=== PATIENT | male | born 1945 | race Caucasian/White ===

== ENCOUNTER → 2025-07-02 11:46 | Outpatient (REF) | payer MEDICARE, SELFPAY | LOC: RAD 11:46 | PROVIDERS: ATTENDING PHYSICIAN Family Medicine | DX: M54.50 Low back pain, unspecified (principal) | CPT/HCPCS: 72110 ==

== ENCOUNTER → 2025-07-20 06:42 | Outpatient (REF) | payer MEDICARE, SELFPAY | LOC: PAVMRI 06:42 | PROVIDERS: ATTENDING PHYSICIAN Family Medicine | DX: E66.813 Obesity, class 3 (principal); M54.50 Low back pain, unspecified | CPT/HCPCS: 72148 ==